=== PATIENT | female | born 1955 | race African-American/Black ===

== ENCOUNTER 2018-09-26 08:24 | Inpatient (IN) | payer MEDICAID ==
[~2018-09-26] VITALS: Ht 162.6 cm; Wt 69.4 kg
[~2018-09-26 08:24] MED LIST: ASPI-1160 PO; COR3 PO; DOXE25CA3 PO; FURO40TA5 PO; IBUP-2030 PO; LISI10TA5 PO; ONDA4TAB21 PO; SIMV40TA5 PO
[2018-09-26] MEDS ORDERED: ALBUTEROL (0.083%) 2.5MG/3ML NEB HHN STA (09:31)
[2018-09-26] MEDS ORDERED: MORPHINE SULFATE 4 MG/ML CPJ (NOT FOR IM USE) IV STA (09:31)
[2018-09-26] MEDS ORDERED: IPRATROPIUM BROMIDE (0.02%) 0.5MG/2.5ML NEB HHN STA (09:31)
[2018-09-26] MEDS ORDERED: METHYLPREDNISOLONE SOD SUCC 125 MG/2 ML VIAL IV STA (09:31)
[2018-09-26] MEDS ORDERED: ONDANSETRON HCL 4MG/2ML INJ IV STA (09:31)
[2018-09-26] MEDS ORDERED: NITROGLYCERIN OINT 1GM/INCH UDPKT TD ONE (09:45)
[2018-09-26] MEDS ORDERED: ASPIRIN 81MG TABLET PO ONE (09:45)
[2018-09-26 10:02] LABS: BASOPHILS % 0.4 % (0.0-2.0); HEMATOCRIT. 30.2 % (36.0-48.0); HEMOGLOBIN. 10.4 g/dL (12.0-16.0); LYMPHOCYTES % 15.4 % (20.0-50.0); MEAN CORPUSCULAR HEMOGLOBIN 29.3 pg (28.0-32.0); MEAN CORPUSCULAR VOLUME 84.8 fL (81.0-99.0); MEAN PLATELET VOLUME 9.5 fl (7.4-10.4); MONOCYTES % 8.5 % (2.0-8.0); NEUTROPHILS % 75.7 % (40.0-76.0); PLATELET 198 x1000/uL (130-400); RED BLOOD CELL COUNT 3.56 mill/uL (4.2-5.4); RED CELL DISTRIBUTION WIDTH 17.4 % (11.6-14.6)
[2018-09-26 10:08] LABS: CHLORIDE 98 mEq/L (98-107)
[2018-09-26 10:13] LABS: INR 1.7; PROTHROMBIN TIME 17.1 sec (9.6-11.0)
[2018-09-26] MEDS ORDERED: INSULIN REGULAR (HUMULIN R) 300UNITS/3ML SUBCUT ONE (10:30)
[2018-09-26] MEDS ORDERED: IPRATROPIUM/ALBUTEROL 0.5-3(2.5)MG/3ML NEB HHN PRN (10:45)
[2018-09-26] MEDS ORDERED: DEXTROSE 50% WATER 50ML SYRINGE IV PRN (10:45)
[2018-09-26] MEDS ORDERED: ACETAMINOPHEN 325MG TABLET PO PRN (10:45)
[2018-09-26] MEDS ORDERED: ONDANSETRON HCL 4MG/2ML INJ IV PRN (10:45)
[2018-09-26 12:00] VITALS: BP 137/96
[2018-09-26] MEDS: BLOOD SUGAR DIAGNOSTIC STRIP TEST SCH ×3 (12:42→21:37)
[2018-09-26] MEDS: INSULIN LISPRO 100 UNITS/ML SUBCUT SCH ×3 (12:42→21:52)
[2018-09-26] MEDS ORDERED: LOSARTAN POTASSIUM 25 MG TABLET PO NR (13:00)
[2018-09-26] MEDS ORDERED: INSULIN GLARGINE UD 100 UNITS/ML SYR SUBCUT NR (14:30)
[2018-09-26] MEDS: FUROSEMIDE 40MG/4ML VIAL IVP SCH ×2 (15:37→18:35)
[2018-09-26] MEDS: NITROGLYCERIN OINT 1GM/INCH UDPKT TD SCH ×2 (15:37→21:50)
[2018-09-26] MEDS: AMLODIPINE 5MG TABLET PO SCH (15:38)
[2018-09-26] MEDS: ENOXAPARIN 40MG/0.4ML SYR SUBCUT SCH (15:38)
[2018-09-26] MEDS: METHYLPREDNISOLONE SOD SUCC 40 MG/ML VIAL IV SCH ×2 (15:38→21:50)
[2018-09-26] MEDS: MORPHINE SULFATE 4 MG/ML CPJ (NOT FOR IM USE) IV PRN ×2 (15:50→22:46)
[2018-09-26 16:00] VITALS: BP 134/76
[2018-09-26 20:00] VITALS: BP 109/67
[2018-09-26] MEDS ORDERED: INSULIN GLARGINE UD 100 UNITS/ML SYR SUBCUT SCH (22:00)
[2018-09-27] VITALS (7 sets, daily range): BP systolic 102–121; BP diastolic 65–74
[2018-09-27] MEDS: BUDESONIDE 0.5MG/2ML NEB HHN SCH ×3 (00:22→21:14)
[2018-09-27] MEDS: IPRATROPIUM/ALBUTEROL 0.5-3(2.5)MG/3ML NEB HHN SCH ×6 (00:22→21:14)
[2018-09-27] MEDS: MORPHINE SULFATE 4 MG/ML CPJ (NOT FOR IM USE) IV PRN ×4 (04:11→22:46)
[2018-09-27] MEDS: BLOOD SUGAR DIAGNOSTIC STRIP TEST SCH ×4 (06:01→21:11)
[2018-09-27] MEDS: METHYLPREDNISOLONE SOD SUCC 40 MG/ML VIAL IV SCH ×3 (06:25→21:12)
[2018-09-27] MEDS: FUROSEMIDE 40MG/4ML VIAL IVP SCH ×2 (06:25→17:57)
[2018-09-27] MEDS: NITROGLYCERIN OINT 1GM/INCH UDPKT TD SCH ×3 (06:25→21:12)
[2018-09-27] MEDS: INSULIN LISPRO 100 UNITS/ML SUBCUT SCH ×6 (06:33→21:19)
[2018-09-27 06:58] LABS: BASOPHILS % 0.2 % (0.0-2.0); HEMATOCRIT. 25.6 % (36.0-48.0); LYMPHOCYTES % 12.9 % (20.0-50.0); MEAN CORPUSCULAR HEMOGLOBIN 29.2 pg (28.0-32.0); MEAN CORPUSCULAR VOLUME 83.6 fL (81.0-99.0); MEAN PLATELET VOLUME 9.3 fl (7.4-10.4); MONOCYTES % 3.8 % (2.0-8.0); NEUTROPHILS % 83.1 % (40.0-76.0); PLATELET 172 x1000/uL (130-400); RED BLOOD CELL COUNT 3.07 mill/uL (4.2-5.4); RED CELL DISTRIBUTION WIDTH 17.3 % (11.6-14.6)
[2018-09-27 07:11] LABS: CHLORIDE 99 mEq/L (98-107)
[2018-09-27] MEDS ORDERED: POTASSIUM CHLORIDE 20MEQ TABLET SR PO SCH (10:00)
[2018-09-27] MEDS: ASPIRIN 81MG TABLET PO SCH (10:12)
[2018-09-27] MEDS: AMLODIPINE 5MG TABLET PO SCH (10:12)
[2018-09-27] MEDS ORDERED: DIPHENHYDRAMINE 25MG CAPSULE PO NR (10:30)
[2018-09-27] MEDS ORDERED: DIPHENHYDRAMINE 25MG CAPSULE PO PRN (10:30)
[2018-09-27] MEDS: LOSARTAN POTASSIUM 25 MG TABLET PO SCH (11:04)
[2018-09-27] MEDS: ENOXAPARIN 40MG/0.4ML SYR SUBCUT SCH (12:31)
[2018-09-27] MEDS ORDERED: INSULIN GLARGINE UD 100 UNITS/ML SYR SUBCUT SCH (22:00)
[2018-09-28] VITALS: BP 120/70
[2018-09-28] MEDS: BUDESONIDE 0.5MG/2ML NEB HHN SCH (00:59)
[2018-09-28] MEDS: IPRATROPIUM/ALBUTEROL 0.5-3(2.5)MG/3ML NEB HHN SCH ×5 (01:00→16:00)
[2018-09-28 04:00] VITALS: BP 118/72
[2018-09-28] MEDS: MORPHINE SULFATE 4 MG/ML CPJ (NOT FOR IM USE) IV PRN ×4 (04:09→21:57)
[2018-09-28 04:12] LABS: CLARITY URINE CLEAR (CLEAR); COLOR URINE YELLOW (YELLOW); KETONES URINE NEGATIVE (NEGATIVE); LEUKOCYTE ESTERASE URINE NEGATIVE (NEGATIVE); NITRITE URINE NEGATIVE (NEGATIVE); OCCULT BLOOD URINE NEGATIVE (NEGATIVE); PROTEIN URINE NEGATIVE (NEGATIVE); SPECIFIC GRAVITY URINE 1.016 (1.005-1.030); UROBILINOGEN URINE 0.2 E.U./dL (0.2-1.0)
[2018-09-28] MEDS: BLOOD SUGAR DIAGNOSTIC STRIP TEST SCH ×4 (05:46→20:23)
[2018-09-28] MEDS: INSULIN LISPRO 100 UNITS/ML SUBCUT SCH ×7 (06:42→20:23)
[2018-09-28] MEDS: METHYLPREDNISOLONE SOD SUCC 40 MG/ML VIAL IV SCH ×3 (06:43→21:56)
[2018-09-28] MEDS: FUROSEMIDE 40MG/4ML VIAL IVP SCH ×2 (06:43→17:54)
[2018-09-28] MEDS: NITROGLYCERIN OINT 1GM/INCH UDPKT TD SCH ×3 (06:44→21:58)
[2018-09-28 06:45] LABS: HEMATOCRIT. 27.5 % (36.0-48.0); HEMOGLOBIN. 9.4 g/dL (12.0-16.0); MEAN CORPUSCULAR HEMOGLOBIN 28.7 pg (28.0-32.0); MEAN CORPUSCULAR VOLUME 84.2 fL (81.0-99.0); MEAN PLATELET VOLUME 9.3 fl (7.4-10.4); PLATELET 201 x1000/uL (130-400); RED BLOOD CELL COUNT 3.27 mill/uL (4.2-5.4); RED CELL DISTRIBUTION WIDTH 17.2 % (11.6-14.6)
[2018-09-28 08:00] VITALS: BP 127/86
[2018-09-28 08:45] LABS: PLATELET ESTIMATE NORMAL
[2018-09-28] MEDS: LOSARTAN POTASSIUM 25 MG TABLET PO SCH (09:27)
[2018-09-28] MEDS: ASPIRIN 81MG TABLET PO SCH (09:27)
[2018-09-28] MEDS: AMLODIPINE 5MG TABLET PO SCH (09:28)
[2018-09-28] MEDS: INSULIN GLARGINE UD 100 UNITS/ML SYR SUBCUT SCH ×2 (10:38→22:03)
[2018-09-28 12:00] VITALS: BP 113/52
[2018-09-28] MEDS ORDERED: FUROSEMIDE 40MG/4ML VIAL IVP NR (14:00)
[2018-09-28] MEDS: ENOXAPARIN 40MG/0.4ML SYR SUBCUT SCH (14:15)
[2018-09-28 16:00] VITALS: BP 119/77
[2018-09-28] MEDS: ACETYLCYSTEINE 100MG/ML 10% VIAL 4ML INH SCH (16:00)
[2018-09-28] MEDS: THEOPHYLLINE ANHYDROUS 80 MG/15 ML 120ML PO SCH ×2 (16:47→22:38)
[2018-09-28 20:00] VITALS: BP 109/59
[2018-09-29] VITALS: BP 99/46
[2018-09-29] MEDS: MORPHINE SULFATE 4 MG/ML CPJ (NOT FOR IM USE) IV PRN ×5 (03:17→22:06)
[2018-09-29 04:00] VITALS: BP 114/67
[2018-09-29] MEDS: ACETYLCYSTEINE 100MG/ML 10% VIAL 4ML INH SCH ×3 (05:30→07:50)
[2018-09-29] MEDS: METHYLPREDNISOLONE SOD SUCC 40 MG/ML VIAL IV SCH ×3 (06:44→22:12)
[2018-09-29] MEDS: FUROSEMIDE 40MG/4ML VIAL IVP SCH ×2 (06:44→17:39)
[2018-09-29] MEDS: NITROGLYCERIN OINT 1GM/INCH UDPKT TD SCH (06:45)
[2018-09-29] MEDS: THEOPHYLLINE ANHYDROUS 80 MG/15 ML 120ML PO SCH ×3 (06:45→22:12)
[2018-09-29] MEDS: BLOOD SUGAR DIAGNOSTIC STRIP TEST SCH ×4 (06:45→21:00)
[2018-09-29] MEDS: INSULIN LISPRO 100 UNITS/ML SUBCUT SCH ×7 (06:46→22:04)
[2018-09-29 06:50] LABS: HEMATOCRIT. 28.9 % (36.0-48.0); MEAN CORPUSCULAR HEMOGLOBIN 28.8 pg (28.0-32.0); MEAN CORPUSCULAR VOLUME 83.7 fL (81.0-99.0); PLATELET 251 x1000/uL (130-400); RED BLOOD CELL COUNT 3.45 mill/uL (4.2-5.4); RED CELL DISTRIBUTION WIDTH 17.3 % (11.6-14.6)
[2018-09-29] MEDS: IPRATROPIUM/ALBUTEROL 0.5-3(2.5)MG/3ML NEB HHN SCH ×4 (07:59→21:25)
[2018-09-29 08:00] VITALS: BP 109/52
[2018-09-29] MEDS: ASPIRIN 81MG TABLET PO SCH (08:35)
[2018-09-29] MEDS: AMLODIPINE 5MG TABLET PO SCH (08:35)
[2018-09-29] MEDS: LOSARTAN POTASSIUM 25 MG TABLET PO SCH (08:35)
[2018-09-29 08:55] LABS: PLATELET ESTIMATE NORMAL
[2018-09-29] MEDS: INSULIN GLARGINE UD 100 UNITS/ML SYR SUBCUT SCH ×2 (11:37→22:14)
[2018-09-29 12:00] VITALS: BP 95/59
[2018-09-29] MEDS: ENOXAPARIN 40MG/0.4ML SYR SUBCUT SCH (12:41)
[2018-09-29] MEDS: POTASSIUM CHLORIDE 20MEQ TABLET SR PO SCH (13:57)
[2018-09-29 15:59] VITALS: BP 114/69
[2018-09-29] MEDS ORDERED: TERBUTALINE SULFATE 1MG/ML VIAL SUBCUT SCH (17:00)
[2018-09-29] MEDS ORDERED: VERAPAMIL HCL 2.5 MG/1 ML 2ML VIAL IV PRN (19:00)
[2018-09-29 19:47] VITALS: BP 139/77
[2018-09-29] MEDS: CARVEDILOL 3.125 MG TABLET PO SCH (20:18)
[2018-09-30] VITALS: BP 124/79
[2018-09-30] MEDS: ACETYLCYSTEINE 100MG/ML 10% VIAL 4ML INH SCH (00:30)
[2018-09-30] MEDS: IPRATROPIUM/ALBUTEROL 0.5-3(2.5)MG/3ML NEB HHN SCH ×6 (01:40→20:40)
[2018-09-30 04:00] VITALS: BP 105/61
[2018-09-30] MEDS: MORPHINE SULFATE 4 MG/ML CPJ (NOT FOR IM USE) IV PRN ×4 (04:01→20:46)
[2018-09-30 06:28] LABS: HEMATOCRIT. 32.8 % (36.0-48.0); HEMOGLOBIN. 11.1 g/dL (12.0-16.0); MEAN CORPUSCULAR HEMOGLOBIN 28.2 pg (28.0-32.0); MEAN CORPUSCULAR VOLUME 83.8 fL (81.0-99.0); MEAN PLATELET VOLUME 8.6 fl (7.4-10.4); PLATELET 306 x1000/uL (130-400); RED BLOOD CELL COUNT 3.92 mill/uL (4.2-5.4); RED CELL DISTRIBUTION WIDTH 17.7 % (11.6-14.6)
[2018-09-30] MEDS: BLOOD SUGAR DIAGNOSTIC STRIP TEST SCH ×4 (06:37→21:05)
[2018-09-30] MEDS: METHYLPREDNISOLONE SOD SUCC 40 MG/ML VIAL IV SCH ×3 (06:37→22:38)
[2018-09-30] MEDS: INSULIN LISPRO 100 UNITS/ML SUBCUT SCH ×7 (06:37→21:00)
[2018-09-30] MEDS: THEOPHYLLINE ANHYDROUS 80 MG/15 ML 120ML PO SCH (06:37)
[2018-09-30 06:50] LABS: CHLORIDE 98 mEq/L (98-107)
[2018-09-30 08:00] VITALS: BP 96/63
[2018-09-30] MEDS: AMLODIPINE 5MG TABLET PO SCH (08:47)
[2018-09-30] MEDS: ASPIRIN 81MG TABLET PO SCH (08:47)
[2018-09-30] MEDS: FUROSEMIDE 40MG/4ML VIAL IVP SCH ×2 (08:47→17:45)
[2018-09-30] MEDS: POTASSIUM CHLORIDE 20MEQ TABLET SR PO SCH ×2 (08:47→13:58)
[2018-09-30] MEDS: LOSARTAN POTASSIUM 25 MG TABLET PO SCH (08:48)
[2018-09-30] MEDS: CARVEDILOL 3.125 MG TABLET PO SCH (08:48)
[2018-09-30] MEDS: INSULIN GLARGINE UD 100 UNITS/ML SYR SUBCUT SCH ×2 (09:09→22:00)
[2018-09-30 12:00] VITALS: BP 109/71
[2018-09-30] MEDS ORDERED: POTASSIUM CHLORIDE 20MEQ TABLET SR PO ONE (12:15)
[2018-09-30] MEDS ORDERED: MAGNESIUM 2 G PREMIX 50 ML IV NR (13:00)
[2018-09-30 14:17] LABS: NUCLEATED RED BLOOD CELLS 1 /100 WBC; PLATELET ESTIMATE NORMAL
[2018-09-30 16:00] VITALS: BP 106/70
[2018-09-30 20:00] VITALS: BP 119/82
[2018-09-30] MEDS: CARVEDILOL 6.25 MG TABLET PO SCH (21:02)
[2018-09-30] MEDS: ENOXAPARIN 60MG/0.6ML SYR SUBCUT SCH (21:03)
[2018-10-01] VITALS (8 sets, daily range): BP systolic 95–123; BP diastolic 50–85
[2018-10-01] MEDS: IPRATROPIUM/ALBUTEROL 0.5-3(2.5)MG/3ML NEB HHN SCH ×4 (00:27→17:40)
[2018-10-01] MEDS: BLOOD SUGAR DIAGNOSTIC STRIP TEST SCH ×3 (06:01→16:45)
[2018-10-01] MEDS: METHYLPREDNISOLONE SOD SUCC 40 MG/ML VIAL IV SCH ×2 (06:01→14:15)
[2018-10-01] MEDS: INSULIN LISPRO 100 UNITS/ML SUBCUT SCH ×6 (06:03→17:15)
[2018-10-01] MEDS: ACETYLCYSTEINE 100MG/ML 10% VIAL 4ML INH SCH (07:32)
[2018-10-01] MEDS: MORPHINE SULFATE 4 MG/ML CPJ (NOT FOR IM USE) IV PRN (08:29)
[2018-10-01] MEDS: LOSARTAN POTASSIUM 25 MG TABLET PO SCH (08:30)
[2018-10-01] MEDS: POTASSIUM CHLORIDE 20MEQ TABLET SR PO SCH (08:30)
[2018-10-01] MEDS: FUROSEMIDE 40MG/4ML VIAL IVP SCH ×2 (08:31→18:01)
[2018-10-01] MEDS: CARVEDILOL 6.25 MG TABLET PO SCH (08:31)
[2018-10-01] MEDS: AMLODIPINE 5MG TABLET PO SCH (08:31)
[2018-10-01] MEDS: ENOXAPARIN 60MG/0.6ML SYR SUBCUT SCH (08:32)
[2018-10-01 09:36] LABS: HEMATOCRIT. 33.8 % (36.0-48.0); HEMOGLOBIN. 11.6 g/dL (12.0-16.0); MEAN CORPUSCULAR HEMOGLOBIN 28.8 pg (28.0-32.0); MEAN CORPUSCULAR VOLUME 83.9 fL (81.0-99.0); MEAN PLATELET VOLUME 8.5 fl (7.4-10.4); PLATELET 337 x1000/uL (130-400); RED BLOOD CELL COUNT 4.03 mill/uL (4.2-5.4); RED CELL DISTRIBUTION WIDTH 17.2 % (11.6-14.6)
[2018-10-01 09:51] LABS: CHLORIDE 96 mEq/L (98-107)
[2018-10-01] MEDS: INSULIN GLARGINE UD 100 UNITS/ML SYR SUBCUT SCH (10:32)
[2018-10-01] MEDS ORDERED: AMIODARONE HCL 200 MG TABLET PO SCH (11:00)
[2018-10-01] MEDS ORDERED: ENOXAPARIN 40MG/0.4ML SYR SUBCUT SCH (11:00)
[2018-10-02 00:23] LABS: NUCLEATED RED BLOOD CELLS 2 /100 WBC; PLATELET ESTIMATE NORMAL
== END 2018-10-01 20:15 | disposition home or self-care (01) | DRG 140 ==
LOC: ER 08:24 → 5WST 10:36 → EDBEDREQ 10:41 → EDBEDREQTM 10:41 → ENRESERV 11:30
PROVIDERS: ADMIT Internal Medicine; ATTEND Internal Medicine
DX: J44.1 Chronic obstructive pulmonary disease with (acute) exacerbation (principal); J96.00 Acute respiratory failure, unspecified whether with hypoxia or hypercapnia; I47.2 Ventricular tachycardia; I50.43 Acute on chronic combined systolic (congestive) and diastolic (congestive) heart failure; E44.1 Mild protein-calorie malnutrition; E11.65 Type 2 diabetes mellitus with hyperglycemia; I48.92 Unspecified atrial flutter; E87.1 Hypo-osmolality and hyponatremia; I11.0 Hypertensive heart disease with heart failure; I27.20 Pulmonary hypertension, unspecified; I42.0 Dilated cardiomyopathy; D64.9 Anemia, unspecified; I34.0 Nonrheumatic mitral (valve) insufficiency; I49.9 Cardiac arrhythmia, unspecified; F32.9 Major depressive disorder, single episode, unspecified; F41.9 Anxiety disorder, unspecified; Z95.810 Presence of automatic (implantable) cardiac defibrillator; Z68.26 Body mass index [BMI] 26.0-26.9, adult; Z79.899 Other long term (current) drug therapy; Z99.81 Dependence on supplemental oxygen; Q65.89 Other specified congenital deformities of hip
CPT/HCPCS: 36415; 71045; 80048; 80061; 82010; 82962; 83036; 83605; 83735; 83880; 84443; 84484; 93005; 93306; 94640; 96374; 96375; 97110; 97116; 97162; 99285; J1650; J1815; J1940; J2270; J2405; J2920; J2930; J3105; J3475; J3490; J7050; J7608; J7611; J7620; J7626; Q0163

== ENCOUNTER 2023-10-01 10:42 | Emergency (ER) | payer MEDICARE, OTHER ==
[~2023-10-01] VITALS: Ht 165.1 cm; Wt 67.1 kg
[~2023-10-01 10:42] MED LIST changes: -ASPI-1160 PO; -LISI10TA5 PO; +SIMV-46 PO; -SIMV40TA5 PO
[2023-10-01 10:52] VITALS: O2SAT 94
[2023-10-01 11:19] LABS: BASOPHILS % 0.5 % (0.0-2.0); EOSINOPHILS % 0.1 % (0.0-5.0); HEMATOCRIT. 29.2 % (36.0-48.0); HEMOGLOBIN. 9.4 g/dL (12.0-16.0); LYMPHOCYTES % 25.3 % (20.0-50.0); MEAN CORPUSCULAR HEMOGLOBIN 24.7 pg (28.0-32.0); MEAN CORPUSCULAR HGB CONC 32.1 g/dL (31.0-37.0); MEAN CORPUSCULAR VOLUME 77.2 fL (81.0-99.0); MEAN PLATELET VOLUME 9.2 fl (7.4-10.4); NEUTROPHILS % 63.1 % (40.0-76.0); PLATELET 214 x1000/uL (130-400); RED BLOOD CELL COUNT 3.79 mill/uL (4.2-5.4); RED CELL DISTRIBUTION WIDTH 22.9 % (11.6-14.6); WHITE BLOOD COUNT 4.9 x1000/uL (4.5-11.0)
[2023-10-01 11:25] LABS: DIFFERENTIAL COMMENT 1
[2023-10-01 11:26] LABS: ADD RBC MORPHOLOGY YES
[2023-10-01 11:27] LABS: CALCIUM 9.2 mg/dL (8.7-10.4); CHLORIDE 102 mEq/L (98-107); POTASSIUM 4.9 mEq/L (3.5-5.1); SODIUM 136 mEq/L (136-145)
[2023-10-01 11:29] LABS: CARBON DIOXIDE 19 mEq/L (21-32)
[2023-10-01 11:30] LABS: CREATININE 2.3 mg/dL (0.6-1.0); GLUCOSE 306 mg/dL (70-105); TROPONIN I HIGH SENSITIVITY 34 ng/L (3.0-34); UREA NITROGEN BLOOD 40 mg/dL (9-23)
[2023-10-01 11:31] LABS: ALANINE AMINOTRANSFERASE 15 IU/L (10-49)
[2023-10-01 11:32] LABS: ALBUMIN 4.3 g/dL (3.2-4.8); ASPARTATE AMINOTRANSFERASE 26 IU/L (<34); BILIRUBIN DIRECT 0.7 mg/dL (<=3.0); BILIRUBIN TOTAL 1.2 mg/dL (0.1-1.0); PROTEIN TOTAL 7.7 g/dL (6.0-8.3)
[2023-10-01 11:49] LABS: ANISOCYTOSIS 3+; MICROCYTOSIS 1+; PLATELET ESTIMATE NORMAL; TARGET CELLS 1+
[2023-10-01] MEDS: ONDANSETRON HCL 4MG/2ML INJ IV ONE (11:51)
[2023-10-01] MEDS: FUROSEMIDE 40MG/4ML VIAL IVP ONE (11:51)
[2023-10-01] MEDS: MORPHINE SULFATE 2 MG/ML CPJ (NOT FOR IM USE) IV ONE (11:52)
[2023-10-01] MEDS: ACETAMINOPHEN 500MG TABLET PO ONE (14:49)
[2023-10-01 15:18] VITALS: BP 118/79; PULSE 62; RESP 11; TEMP 98
== END 2023-10-01 15:30 | disposition short-term general hospital (02) ==
LOC: ER 10:42 → EDBEDREQ 11:39 → CANBEDREQ 12:56 → ER 15:30
DX: I11.0 Hypertensive heart disease with heart failure (principal); I50.9 Heart failure, unspecified; J45.909 Unspecified asthma, uncomplicated; F12.10 Cannabis abuse, uncomplicated; Z79.899 Other long term (current) drug therapy
CPT/HCPCS: 99285; 96374; 96375; 71045; 80076; 80048; 82010; 83880; 83690; 85025; 84484; 36415; 93005; J1940; J2405; J2270